=== PATIENT | female | born 1960 | race Caucasian/White ===

== ENCOUNTER 2021-03-15 06:17 | Day surgery (SDC) | payer OTHER, SELFPAY ==
--- NOTE | 2021-03-08 13:30 | MHC.SHP ---
Pre-Procedural Eval Section A Date of Service: 03/08/21 The patient is an INPATIENT: No The History & Physical has been completed within 30 days and I have reviewed it.: Yes Section B Chief Complaint: Cataract Left Eye Allergies: Allergies Allergy/AdvReac Type Severity Reaction Status Date / Time dimethyl fumarate Allergy Unknown RASH Unverified 04/02/20 16:49 [From TECFIDERA] sulfamethoxazole Allergy Unknown DIARRHEA Unverified 04/02/20 16:49 [From BACTRIM] trimethoprim [From BACTRIM] Allergy Unknown DIARRHEA Unverified 04/02/20 16:49 Plan Diagnosis/Plan: Unchanged I have reviewed the history and physical and performed a pertinent physical examination on my patient. No changes have occurred unless specified.
[2021-03-09 12:04] VITALS: BMI 21.5
--- NOTE | 2021-03-11 14:11 | P.CONAN_ITS ---
Documented by User: Evelyn Beltran NP 03/11/21 14:11 HPI - Anesthesia Eval Consult details Narrative: 61yo F for Left Cataract Extraction IOL Insertion PCP cleared No prev cataract on record PMF[facility] Past Medical History Medical History Anxiety Arrhythmia Arthritis Asthma Back pain Bronchiectasis Dysphagia GERD (gastroesophageal reflux disease) History of postoperative nausea Multiple sclerosis Primary biliary cirrhosis Raynauds disease Scoliosis Sleep apnea Surgical History Surgical History H/O colonoscopy History of bronchoscopy History of cardiac radiofrequency ablation History of esophagogastroduodenoscopy (EGD) History of partial hysterectomy Hx of hernia repair Hx of varicose vein stripping Social History Social History Are you a primary senior resident care director to a significant other at home: No Do you presently have visiting nurse or other home services: No Patient Tobacco Use Status: Former Tobacco user Quit Date: 1995 Tobacco use type: Cigarette Use of substances other than those prescribed or required for medical reasons: No Advance Directives Information Provided: No Recently lost weight without trying: No Eating poorly because of decreased appetite: No Nutrition Risks: No Nutritional Risk Poor oral hygiene: No Meds Allergies Allergy/AdvReac Type Severity Reaction Status Date / Time dimethyl fumarate Allergy Intermediate RASH Verified 03/09/21 12:19 [From TECFIDERA] sulfamethoxazole Allergy Intermediate DIARRHEA Verified 03/09/21 12:19 [From BACTRIM] trimethoprim [From BACTRIM] Allergy Intermediate DIARRHEA Verified 03/09/21 12:19 Home Medications Medication Instructions Recorded Confirmed Last Taken Type ascorbic acid (vitamin C) 500 mg 500 mg PO DAILY 03/09/21 03/09/21 03/15/21 History tablet (Vitamin C) baclofen 10 mg tablet 10 mg PO BID 03/09/21 03/09/21 Unknown History calcium carbonate 600 mg (1,500 1 tab PO DAILY 03/09/21 03/09/21 Unknown History mg)-vitamin D3 200 unit tablet cholecalciferol (vitamin D3) 10 10 mcg PO DAILY 03/09/21 03/09/21 Unknown History mcg (400 unit) capsule (Vitamin D3) diltiazem HCl 120 mg 120 mg PO DAILY 03/09/21 03/09/21 03/15/21 History capsule,extended release 24 hr gabapentin 100 mg capsule 300 mg PO TID 03/09/21 03/09/21 Unknown History lorazepam 0.5 mg tablet 0.5 mg PO BEDTIME 03/09/21 03/09/21 Unknown History lubiprostone 24 mcg capsule 24 mcg PO Q2D 03/09/21 03/09/21 Unknown History (Amitiza) omeprazole 40 mg capsule,delayed 40 mg PO DAILY 03/09/21 03/09/21 Unknown History release plecanatide 3 mg tablet (Trulance) 3 mg PO Q2D 03/09/21 03/09/21 Unknown History ursodiol 300 mg capsule 300 mg PO TID 03/09/21 03/09/21 Unknown History Exam Exam Date and Time: March 11, 2021 141 Height,Weight and Vital Signs: Height 5 ft 10 in Weight 68.039 kg Assessment and Plan Assessment Anesthesia Assessment: Chart Reviewed Documented by User: Kari Marmolejo MD 03/15/21 07:25 [facility] Past Medical History Medical History Anxiety Arrhythmia Arthritis Asthma Back pain Bronchiectasis Dysphagia GERD (gastroesophageal reflux disease) History of postoperative nausea Multiple sclerosis Primary biliary cirrhosis Raynauds disease Scoliosis Sleep apnea Surgical History Surgical History H/O colonoscopy History of bronchoscopy History of cardiac radiofrequency ablation History of esophagogastroduodenoscopy (EGD) History of partial hysterectomy Hx of hernia repair Hx of varicose vein stripping History of Problems with Anesthesia: No Social History Social History Are you a primary senior resident care director to a significant other at home: No Do you presently have visiting nurse or other home services: No Patient Tobacco Use Status: Former Tobacco user Quit Date: 1995 Tobacco use type: Cigarette Use of substances other than those prescribed or required for medical reasons: No Advance Directives Information Provided: No Recently lost weight without trying: No Eating poorly because of decreased appetite: No Nutrition Risks: No Nutritional Risk Poor oral hygiene: No Meds Allergies Allergy/AdvReac Type Severity Reaction Status Date / Time dimethyl fumarate Allergy Intermediate RASH Verified 03/09/21 12:19 [From TECFIDERA] sulfamethoxazole Allergy Intermediate DIARRHEA Verified 03/09/21 12:19 [From BACTRIM] trimethoprim [From BACTRIM] Allergy Intermediate DIARRHEA Verified 03/09/21 12:19 Home Medications Medication Instructions Recorded Confirmed Last Taken Type ascorbic acid (vitamin C) 500 mg 500 mg PO DAILY 03/09/21 03/09/21 03/15/21 History tablet (Vitamin C) baclofen 10 mg tablet 10 mg PO BID 03/09/21 03/09/21 Unknown History calcium carbonate 600 mg (1,500 1 tab PO DAILY 03/09/21 03/09/21 Unknown History mg)-vitamin D3 200 unit tablet cholecalciferol (vitamin D3) 10 10 mcg PO DAILY 03/09/21 03/09/21 Unknown History mcg (400 unit) capsule (Vitamin D3) diltiazem HCl 120 mg 120 mg PO DAILY 03/09/21 03/09/21 03/15/21 History capsule,extended release 24 hr gabapentin 100 mg capsule 300 mg PO TID 03/09/21 03/09/21 Unknown History lorazepam 0.5 mg tablet 0.5 mg PO BEDTIME 03/09/21 03/09/21 Unknown History lubiprostone 24 mcg capsule 24 mcg PO Q2D 03/09/21 03/09/21 Unknown History (Amitiza) omeprazole 40 mg capsule,delayed 40 mg PO DAILY 03/09/21 03/09/21 Unknown History release plecanatide 3 mg tablet (Trulance) 3 mg PO Q2D 03/09/21 03/09/21 Unknown History ursodiol 300 mg capsule 300 mg PO TID 03/09/21 03/09/21 Unknown History Exam Airway Mallampati Class: I TM Dist: >3cm Neck ROM: Full Loose/Missing/Broken Teeth: No Heart: RRR Lungs: CTA Assessment and Plan Assessment Anesthesia Assessment: Anesthesia Plan Discussed Final Anesthetic Review History of Problems with Anesthesia: No NPO: Yes ASA Class: III Final Preanesthetic Review: Meds/Allgs Chart Reviewed, Consent Obtained/Reviewed and Anes Risks/Benef Reviewed Patient Risk: Intermediate Procedure Risk: Low Anesthetic Plan Anesthetic Plan: MAC: Disposition: Standard PACU
[2021-03-15 06:34] VITALS: BP 116/76; PULSE 87; RESP 18; TEMP 36.6; O2SAT 97
[2021-03-15] MEDS: Tetracaine HCl/PF 0.5% Oph Sol 4 ML DROPS 1 DROP EYE-LEFT (06:34)
[2021-03-15] MEDS: Tropicamide 1 % Ophth Sol 3 ML BTL 1 DROP EYE-LEFT ×3 (06:36→06:39)
[2021-03-15] MEDS: Phenylephrine HCL 2.5% Oph SoL 2 ML BOTTLE 1 DROP EYE-LEFT ×3 (06:37→06:40)
[2021-03-15] MEDS: Lactated Ringers 500 ML 50 ML IV (06:49)
--- NOTE | 2021-03-15 08:20 | HO.PNOPHT ---
Ophthalmology Procedure Procedure Date of Service: 03/15/21 Ophthalmology Viscoelastic: Healon Duet Dual Pack Pro Ophthalmology Lenses: TECNIS [id number] (21.5) Procedure Notes: PREOPERATIVE DIAGNOSIS: Decreased visual acuity left eye secondary to cataract POSTOPERATIVE DIAGNOSIS: Same PROCEDURE: Left cataract extraction with intraocular lens insertion SURGEON: Luis Velazquez M.D. ANESTHESIA: Topical/MAC ESTIMATED BLOOD LOSS: None COMPLICATIONS: None After obtaining informed consent, the patient was brought to the operation room suite and placed in the supine position. After adequate sedation per anesthesia, topical drops of Tetracaine were given to the left eye. The eye was then prepped and draped in the usual sterile fashion. The operating room microscope was then positioned over the operative eye and a lid speculum placed. A paracentesis was created. Viscoelastic was then instilled into the anterior chamber. A three plane incision was then created temporally, utilizing a 2.85 mm keratome. Capsulotomy forceps were then utilized to create a circular tear capsulotomy. Hydrodissection and hydrodelineation were carried out until adequate mobilization of the nucleus occurred. Phacoemulsification was then utilized to remove the dense central nucleus followed by removal of the cortical material utilizing the automated aspiration irrigation unit. Viscoat elastic was instilled into the posterior capsular bag followed by placement of a posterior chamber intraocular lens without difficulty. The residual Viscoat elastic was then removed utilizing the automated IA machine. The wound was check and found to be watertight. The patient tolerated the procedure well and the lid speculum was removed. Intracameral injection of Vigamox 0.1 mL followed by a subtenon injection of Kenalog-40 0.2 mL were administered. The patient will be seen in the a.m.
[2021-03-15 09:04] VITALS: BP 120/75; PULSE 79; RESP 16; TEMP 36.4; O2SAT 99
[2021-03-15] MEDS: Acetaminophen 325 MG TABLET 650 MG PO (09:13)
== END 2021-03-15 09:21 | disposition home or self-care (01) ==
PROVIDERS: PCP Internal Medicine; Visit Provider Ophthalmology
PROC: (CPT 66985; principal; 2021-03-15 08:30)
DX: H25.042 Posterior subcapsular polar age-related cataract, left eye (principal); H54.7 Unspecified visual loss; Z83.511 Family history of glaucoma; H21.233 Degeneration of iris (pigmentary), bilateral; Z96.1 Presence of intraocular lens; G35 Multiple sclerosis; K74.3 Primary biliary cirrhosis; Z79.899 Other long term (current) drug therapy; Z88.8 Allergy status to other drugs, medicaments and biological substances; Z87.891 Personal history of nicotine dependence
CPT/HCPCS: 66984; J2250; J3010; J3300; V2632

== ENCOUNTER 2021-08-16 12:18 | Outpatient (REF) | payer MEDICARE, SELFPAY ==
[2021-08-16 12:37] VITALS: BP 110/75; PULSE 99; RESP 16; TEMP 36.2; O2SAT 99; BMI 21.8
== END 2021-08-16 12:19 | disposition home or self-care (01) ==
LOC: HO.MS 12:18
PROVIDERS: PCP Internal Medicine; Visit Provider Ophthalmology
PROC: (CPT 66821; principal; 2021-08-16 12:00)
DX: H26.491 Other secondary cataract, right eye (principal); Z96.1 Presence of intraocular lens; I10 Essential (primary) hypertension; E11.3211 Type 2 diabetes mellitus with mild nonproliferative diabetic retinopathy with macular edema, right eye; E11.3292 Type 2 diabetes mellitus with mild nonproliferative diabetic retinopathy without macular edema, left eye; Z79.4 Long term (current) use of insulin; Z79.899 Other long term (current) drug therapy; Z87.891 Personal history of nicotine dependence
CPT/HCPCS: 66821